=== PATIENT | male | born 1985 | race Caucasian/White ===

== ENCOUNTER 2019-12-10 17:35 | Emergency (ER) | payer OTHER ==
[2019-12-10] MEDS ORDERED: ZOLOFT 100MG100 MG PO (17:47)
[2019-12-10 18:20] LABS: BASO # 0.1 (0.02-0.10); EOS # 0.3 (0.04-0.40); HEMATOCRIT 44.7 % (42.0-52.0); HEMOGLOBIN 15.3 g/dL (13.5-18.0); LYMPH# 3.3 (1.50-4.00); MEAN CELL VOLUME 87 fl (78-100); MEAN CORPUSCULAR HEMOGLOBIN 30 pg (27-31); MEAN CORPUSCULAR HGB CONC 34 g/dL (33-37); MEAN PLATELET VOLUME 9.5 fl (7.4-10.4); MONO # 0.8 (0.20-0.80); NEU # 5.8 (1.40-6.50); PLATELET COUNT 400 K/mm3 (130-400); RED BLOOD COUNT 5.15 M/mm3 (4.20-5.60); RED CELL DISTRIBUTION WIDTH 12.7 % (11.5-14.5); WHITE BLOOD COUNT 10.2 K/mm3 (4.8-10.8)
[2019-12-10 18:29] LABS: CALCIUM 9.6 mg/dL (8.3-10.5)
[2019-12-10] MEDS ORDERED: MECLIZINE PO (19:24)
[2019-12-10 19:50] VITALS: BP 113/81
== END 2019-12-10 19:50 | disposition home or self-care (01) ==
LOC: ED 17:35
PROVIDERS: Family Medicine
DX: R42 Dizziness and giddiness (principal); F32.9 Major depressive disorder, single episode, unspecified; F17.200 Nicotine dependence, unspecified, uncomplicated; Z79.52 Long term (current) use of systemic steroids

== ENCOUNTER → 2021-09-16 | Outpatient (CLI) | payer OTHER ==
[~2021-09-16] MED LIST: MECLIZINE PO; ZOLOFT 100MG100 MG PO
== END ==
LOC: LAB 18:14
DX: K61.0 Anal abscess (principal)

== ENCOUNTER 2023-03-08 15:27 | Emergency (ER) | payer BC ==
[~2023-03-08] VITALS: Ht 177.8 cm; Wt 77.3 kg
[2023-03-08 15:50] VITALS: BP 117/76
[2023-03-08] MEDS ORDERED: CEPHALEXIN500 M1 PO (16:09)
[2023-03-08] MEDS ORDERED: BACTRIM DS TAB1 EACH PO (16:09)
== END 2023-03-08 17:47 ==
LOC: ED 15:27
DX: L02.01 Cutaneous abscess of face (principal); L03.211 Cellulitis of face

== ENCOUNTER → 2023-09-18 | Outpatient (CLI) | payer BC ==
[~2023-09-18] MED LIST changes: +BACTRIM DS TAB1 EACH PO; +CEPHALEXIN500 M1 PO
[2023-09-18 17:13] LABS: EOS # 0.11 K/mm3 (0.04-0.40); HEMATOCRIT 42.9 % (42.0-52.0); HEMOGLOBIN 14.8 g/dL (13.5-18.0); LYMPH# 3.29 K/mm3 (1.50-4.00); MEAN CELL VOLUME 87 fl (78-100); MEAN CORPUSCULAR HEMOGLOBIN 30 pg (27-31); MEAN CORPUSCULAR HGB CONC 35 g/dL (33-37); MEAN PLATELET VOLUME 9.1 fl (7.4-10.4); MONO # 0.42 K/mm3 (0.20-0.80); NEU # 6.97 K/mm3 (1.40-6.50); PLATELET COUNT 382 K/mm3 (130-400); RED BLOOD COUNT 4.92 M/mm3 (4.20-5.60); RED CELL DISTRIBUTION WIDTH 12.2 % (11.5-14.5); WHITE BLOOD COUNT 10.8 K/mm3 (4.8-10.8)
[2023-09-18 17:20] LABS: ALBUMIN 4.2 g/dL (3.5-5.0)
[2023-09-18 17:22] LABS: CALCIUM 9.4 mg/dL (8.3-10.5)
[2023-09-18 17:23] LABS: TOTAL PROTEIN 6.9 g/dL (6.4-8.3)
[2023-09-18 17:25] LABS: TOTAL BILIRUBIN 0.2 mg/dL (0.2-1.2)
== END ==
LOC: LAB 16:41
PROVIDERS: Nurse Practitioner Family
DX: L50.0 Allergic urticaria (principal)

== ENCOUNTER 2023-11-07 21:36 | Emergency (ER) | payer BC ==
[~2023-11-07] VITALS: Ht 177.8 cm; Wt 86.4 kg
[2023-11-07] MEDS ORDERED: HYDROXYZINE HCL25 M1 PO (21:41)
[2023-11-07] MEDS ORDERED: TRIAMCINOLONE AC0.13 TP (21:41)
[2023-11-07] MEDS ORDERED: PREDNISONE1 MG (21:41)
[2023-11-07] MEDS ORDERED: CETIRIZINE HCL10 MG PO (21:41)
[2023-11-07] MEDS ORDERED: VENLAFAXINE HY150 MG PO (21:42)
[2023-11-07] MEDS ORDERED: PRAMIPEXOLE0.125 MG PO (21:42)
[2023-11-07] MEDS ORDERED: dexAMETHasone 4 MG TAB PO ONE (22:15)
[2023-11-07] MEDS ORDERED: diphenhydrAMINE 25 MG CAP PO ONE (22:15)
[2023-11-07] MEDS ORDERED: Famotidine 20 MG TAB PO ONE (22:15)
[2023-11-07 23:29] LABS: BASO # 0.01 K/mm3 (0.02-0.10); EOS # 0.03 K/mm3 (0.04-0.40); EOS % 0.4 % (0.0-4.0); HEMATOCRIT 42.6 % (42.0-52.0); HEMOGLOBIN 14.9 g/dL (13.5-18.0); LYMPH# 1.77 K/mm3 (1.50-4.00); MEAN CELL VOLUME 87 fl (78-100); MEAN CORPUSCULAR HEMOGLOBIN 31 pg (27-31); MEAN CORPUSCULAR HGB CONC 35 g/dL (33-37); MONO # 0.35 K/mm3 (0.20-0.80); NEU # 4.65 K/mm3 (1.40-6.50); PLATELET COUNT 351 K/mm3 (130-400); RED BLOOD COUNT 4.89 M/mm3 (4.20-5.60); RED CELL DISTRIBUTION WIDTH 12.4 % (11.5-14.5); WHITE BLOOD COUNT 6.8 K/mm3 (4.8-10.8)
[2023-11-07 23:29] LABS: URINE WBC 0 /hpf (0-3)
[2023-11-07 23:40] LABS: PH-URINE 5.5 (5.0 - 8.0); URINE APPEARANCE CLEAR (CLEAR); URINE BILIRUBIN NEGATIVE (NEGATIVE); URINE BLOOD NEGATIVE (NEGATIVE); URINE COLOR YELLOW (YELLOW); URINE GLUCOSE NEGATIVE (NEGATIVE); URINE KETONE NEGATIVE (NEGATIVE); URINE LEUKOCYTE ESTERASE NEGATIVE (NEGATIVE); URINE NITRATE NEGATIVE (NEGATIVE); URINE PROTEIN(semi-quant) NEGATIVE (NEGATIVE)
[2023-11-08] MEDS ORDERED: EPINEPHrine 1 MG/ML (1:1000) 1 ML AMP SQ ONE (00:15)
[2023-11-08] MEDS ORDERED: PREDNISONE20 M1 PO (00:46)
[2023-11-08] MEDS ORDERED: EPIPEN 2-PAK1 MG/ML SQ (00:46)
[2023-11-08 00:55] VITALS: BP 109/75
== END 2023-11-08 00:57 | disposition home or self-care (01) ==
LOC: ED 21:36
PROVIDERS: Family Medicine
DX: T78.3XXA Angioneurotic edema, initial encounter (principal); F17.200 Nicotine dependence, unspecified, uncomplicated; X58.XXXA Exposure to other specified factors, initial encounter
CPT/HCPCS: J0171

== ENCOUNTER → 2023-11-13 | Outpatient (CLI) | payer BC ==
[~2023-11-13] MED LIST changes: +CETIRIZINE HCL10 MG PO; +EPIPEN 2-PAK1 MG/ML SQ; +HYDROXYZINE HCL25 M1 PO; +PRAMIPEXOLE0.125 MG PO; +PREDNISONE1 MG; +PREDNISONE20 M1 PO; +TRIAMCINOLONE AC0.13 TP; +VENLAFAXINE HY150 MG PO
[2023-11-14 00:54] LABS: T3 TOTAL 103 ng/dL (35-193)
== END ==
LOC: LAB 15:13
PROVIDERS: Physician Assistant
DX: Z13.29 Encounter for screening for other suspected endocrine disorder (principal)